=== PATIENT | female | born 1945 | race Caucasian/White ===

== ENCOUNTER 2016-10-12 08:24 | Emergency (ER) | payer MEDICARE, OTHER ==
[~2016-10-12] VITALS: Ht 165.1 cm; Wt 57.2 kg
[2016-10-12] MEDS ORDERED: AMLO10TA2 PO (08:35)
[2016-10-12] MEDS ORDERED: LISI-603 PO (08:35)
[2016-10-12] MEDS ORDERED: NITROGLYCERIN SL (08:35)
[2016-10-12] MEDS ORDERED: ATOR20TA PO (08:35)
[2016-10-12] MEDS: ONDANSETRON 4 MG/2 ML VIAL IV ONE (09:16)
[2016-10-12] MEDS: IV NORMAL SALINE 1000 ML BAG IV ONE (09:16)
[2016-10-12] MEDS: ACETAMINOPHEN 325 MG TABLET PO ONE (09:17)
[2016-10-12] MEDS: KETOROLAC TROMETHAMINE 15 MG INJ IVP ONE (09:18)
[2016-10-12] MEDS ORDERED: ONDANSETRON 4 MG/2 ML VIAL ONE (09:27)
[2016-10-12] MEDS ORDERED: ACETAMINOPHEN 325 MG TABLET ONE (09:27)
[2016-10-12] MEDS ORDERED: KETOROLAC TROMETHAMINE 15 MG INJ ONE (09:31)
[2016-10-12 09:45] LABS: HEMOGLOBIN 13.1 G/DL (12.0-16.0); MONOCYTES # (AUTO) 0.2 K/UL (0.1-1.30); NEUTROPHILS # (AUTO) 0.8 K/UL (1.8-8.9)
[2016-10-12 09:51] LABS: BASOPHILS % (AUTO) 0.5 % (0.0-2.0); EOSINOPHILS % (AUTO) 0.4 % (0.0-7.0); HEMATOCRIT 39.4 % (37-47); LYMPHOCYTES # (AUTO) 0.5 K/UL (0.8-4.8); LYMPHOCYTES % (AUTO) 32.4 % (20.5-51.5); MEAN CORPUSCULAR HEMOGLOBIN 28.6 UUG (27.0-31.0); MEAN CORPUSCULAR HGB CONC 33 g/dL (32.0-37.0); MEAN CORPUSCULAR VOLUME 85.9 FL (81.0-99.0); NEUTROPHILS % (AUTO) 50.7 % (38.5-71.5); PLATELET COUNT (AUTO) 145 K/UL (150-450); RED BLOOD CELL COUNT(AUTO) 4.59 MIL/UL (4.2-5.4)
[2016-10-12 09:53] LABS: WHITE BLOOD COUNT (AUTO) 1.5 K/UL (4.0-11.2)
[2016-10-12 09:55] LABS: CARBON DIOXIDE 28 mmol/L (21-32); CHLORIDE 97 mmol/L (98-107); CREATININE 1.2 mg/dL (0.6-1.3); GLUCOSE 99 mg/dL (74-106); POTASSIUM 4.2 mmol/L (3.5-5.1); UREA NITROGEN, BLOOD 14 mg/dL (7-18)
[2016-10-12 10:01] LABS: ALANINE AMINOTRANSFERASE 22 U/L (14-59); ALKALINE PHOSPHATASE 80 U/L (50-136); ASPARTATE AMINOTRANSFERASE 26 U/L (15-37); BILIRUBIN,DIRECT 0.1 mg/dL (0.0-0.2); BILIRUBIN,TOTAL 0.3 mg/dL (0.2-1.0); TOTAL PROTEIN, SERUM 8.7 g/dL (6.4-8.2)
--- NOTE | 2016-10-12 10:07 | NUR ---
Patient is resting comfortably in bed with eyes closed. PATIENT IS PAIN FREE AT THIS TIME.
[2016-10-12 10:09] LABS: BAND % (MANUAL) 18 % (0-10); BASOPHILS % (MANUAL) 1 % (0-2); LYMPHOCYTES % (MANUAL) 29 % (20-40); MONOCYTES % (MANUAL) 14 % (2-10); NEUTROPHILS % (MANUAL) 38 % (42-75)
[2016-10-12 10:50] LABS: *BLOOD, URINE 2+ (NEGATIVE); *CLARITY,URINE CLEAR (CLEAR); *COLOR,URINE YELLOW (YELLOW); *KETONES,URINE 2+ (NEGATIVE); *PROTEIN,URINE 2+ (NEGATIVE); *UROBILINOGEN,URINE 0.2 E.U./dl (NORMAL); LEUKOCYTE ESTERASE ,URINE NEGATIVE (NEGATIVE); NITRITE, URINE NEGATIVE (NEGATIVE); PH,URINE 6.5 (5.0-8.0); UGLUCOSE NEGATIVE (NEGATIVE)
[2016-10-12 10:53] LABS: *BILIRUBIN,URIN 1+ (NEGATIVE)
[2016-10-12 11:01] LABS: BACTERIA,URINE FEW /HPF (NONE SEEN); SQUAMOUS EPITHELIAL CELL,UR FEW /HPF (NONE SEEN); WBC,URINE 0-3 /HPF (0-3)
--- NOTE | 2016-10-12 11:23 | NUR ---
Patient does not wish to proceed with medical care recommended by Dr. Sharif. Patient given information related to possible complications, up to and including , which could occur as a result of leaving the hospital at this time. Patient verbalizes understanding of risks involved due to leaving against medical advice. Patient has signed AMA form.
== END 2016-10-12 11:32 | disposition left against medical advice (07) ==
LOC: ER 08:24
DX: D70.9 Neutropenia, unspecified (principal); J09.X2 Influenza due to identified novel influenza A virus with other respiratory manifestations; I10 Essential (primary) hypertension; Z90.49 Acquired absence of other specified parts of digestive tract; E78.00 Pure hypercholesterolemia, unspecified
CPT/HCPCS: 36415; 71010; 80048; 80076; 81001; 83605; 83690; 84484; 85025; 85730; 87040 ×2; 87400; 93005; 96361; 96374; 96375; 99285; A4663; J1885; J2405; J7030; 70030-TC

== ENCOUNTER 2016-10-17 15:06 | Emergency (ER) | payer MEDICARE, OTHER ==
[~2016-10-17] VITALS: Ht 165.1 cm; Wt 58.1 kg
[~2016-10-17 15:06] MED LIST: AMLO10TA2 PO; ATOR20TA PO; LISI-603 PO; NITROGLYCERIN SL
--- NOTE | 2016-10-17 16:20 | NUR ---
BRENNAN spoke with Dr. Ramos, Hematology.
[2016-10-17 16:36] VITALS: BP 137/74
--- NOTE | 2016-10-17 16:36 | NUR ---
Patient discharged to home in stable conditon. Written and verbal after care instructions given. Patient verbalizes understanding of instructions.
== END 2016-10-17 16:37 | disposition home or self-care (01) ==
LOC: ER 15:08
DX: D70.9 Neutropenia, unspecified (principal); I10 Essential (primary) hypertension; E78.00 Pure hypercholesterolemia, unspecified; Z90.49 Acquired absence of other specified parts of digestive tract
CPT/HCPCS: 99281; A4663